=== PATIENT | male | born 1970 | race African-American/Black ===

== ENCOUNTER 2018-01-11 09:30 | Inpatient (IN) | payer OTHER ==
[2018-01-11] VITALS (7 sets, daily range): BP systolic 77–111; BP diastolic 39–71
[~2018-01-11] VITALS: Ht 182.9 cm; Wt 144.1 kg
--- NOTE | ~2018-01-11 | 2DMMODE ---
[facility] [place] [employer] [place] [address] 2 D/M-MODE ECHOCARDIOGRAM Name: DEMETRI DURAND Room #: 219-P [facility] IN ..#: [id number] Admission: 01/11/18 Attend Phys: Stephan Syed MD Discharge: Date of : 72 Date of Service: 01/11/18 1432 Report #: [id number] THIS REPORT FOR: //name// APPROVED REPORT Study performed: 01/11/2018 11:40:19 EXAM: Comprehensive 2D, Doppler, and color-flow Echocardiogram Patient Location: ER Status: routine BSA: 2.62 HR: 52 bpm BP: 86/49 mmHg Rhythm: NSR Other Information Study Quality: Adequate Indications Syncope, dizziness, bradycardia, history of cardiomyopathy with low EF. 2D Dimensions RVDd: 45.80 mm IVSd: 12.01 (7-11mm) LVOT Diam: 21.75 (18-24mm) LVDd: 56.51 mm PWd: 12.14 (7-11mm) Ascending Ao: 33.24 (22-36mm) LVDs: 41.90 (25-40mm) Aortic Root: 36.38 mm Volumes Left Atrial Volume (Systole) Single Plane 4CH: 59.73 mL Single Plane 2CH: 56.02 mL LA ESV Index: 24.00 mL/m2 Aortic Valve AoV Peak Ritesh.: 1.51 m/s AO Peak Gr.: 9.09 mmHg LVOT Max P.83 mmHg LVOT Max V: 1.10 m/s LILL[place] Vmax: 2.71 cm2 Mitral Valve E/A Ratio: 1.3 MV Decel. Time: 161.64 ms [facility] [place] [employer] [place] [address] 2 D/M-MODE ECHOCARDIOGRAM Name: DEMETRI DURAND Room #: 219-P [facility]#: [id number] Admission: 01/11/18 Attend Phys: Stephan Syed MD Discharge: Date of : 72 Date of Service: 01/11/18 1432 Report #: [id number] MV E Max Ritesh.: 0.96 m/s MV A Ritesh.: 0.74 m/s MV PHT: 46.87 ms IVRT: 83.04 ms Pulmonary Valve PV Peak Ritesh.: 0.90 m/s PV Peak Gr.: 3.27 mmHg Pulmonary Vein P Vein S: 0.47 m/s P Vein A: 0.28 m/s P Vein D: 0.41 m/s P Vein A Dur.: 110.7 msec P Vein S/D Ratio: 1.15 Tricuspid Valve TR Peak Ritesh.: 1.92 m/s RAP Estimate: 5.00 mmHg TR Peak Gr.: 14.81 mmHg PA Pressure: 20.00 mmHg Left Ventricle The left ventricle is normal size. There is normal LV segmental wall motion. Mild concentric left ventricular hypertrophy. Left ventricular systolic function is normal. LVEF is 55%. The left ventricular diastolic function is normal. Right Ventricle Right ventricle is at the upper limits of normal. The right ventricular systolic function is normal. Atria The left atrium size is normal. The right atrium size is normal. Aortic Valve The aortic valve is normal in structure. Trace aortic regurgitation. There is no aortic valvular stenosis. Mitral Valve The mitral valve is normal in structure. Trace mitral regurgitation. Tricuspid Valve The tricuspid valve is normal in structure. Trace tricuspid regurgitation. Estimated PAP is 20-25mmHg. Pulmonic Valve The pulmonary valve is normal in structure. Mild pulmonic [place] [id number] 2 D/M-MODE ECHOCARDIOGRAM Name: DEMETRI DURAND Room #: 219-P [facility] IN .R.#: [id number] Admission: 01/11/18 Attend Phys: Stephan Syed MD Discharge: Date of : 72 Date of Service: 01/11/18 1432 Report #: [id number] regurgitation. Great Vessels The aortic root is normal in size. The ascending aorta is normal in size. IVC is normal in size and collapses >50% with inspiration. Pericardium There is no pericardial effusion. <Conclusion> 1. Normal echocardiogram with Doppler. EF 55% 2. Pulmonary artery pressure 20-25mmHg 3. No pericardial effusion <ELECTRONICALLY SIGNED> By: Kyle Rizo MD, FACC 01/11/181431 31 31 Kyle Rizo MD, FACC /INF
--- NOTE | ~2018-01-11 | EKG ---
[address] [address] ELECTROCARDIOGRAM REPORT Name: DEMETRI DURAND Room #: 170-8 ADM IN M.R.#: [id number] Admission: 01/11/18 Attend Phys: Stephan Syed MD Discharge: Date of : 72 Report #: [id number] THIS REPORT FOR: //name// [facility] ED Test Date: 2018-01-11 Test Time: 09:38:36 Pat Name: DEMETRI DURAND Department: Room: 170 Gender: M [employer]: NICOLLE : 1970 Requested By: Cullen Ash Order Number: [id number] MD: Sukhwinder Newsome Measurements Intervals [place] Rate: 42 P: -5 ME: 213 QRS: 28 QRSD: 118 T: 14 QT: 457 QTc: 382 Interpretive Statements Sinus bradycardia Borderline prolonged ME interval Incomplete left bundle branch block ST elev, probable normal early repol pattern Compared to ECG 01/02/2006 13:52:39 Electronically Signed On 01-11-2018 13:26:17 CDT by Sukhwinder Newsome [email or web address] <ELECTRONICALLY SIGNED> By: Sukhwinder Newsome MD 01/11/18 1326 [id number] [id number] Sukhwinder Newsome MD /GUSTAVO
[2018-01-11 10:29] LABS: ABSOLUTE NEUTROPHILS 4.6 thou/uL (1.4-8.2); BASOPHILS 0.4 % (0.0-2.0); EOSINOPHILS 1.3 % (0.0-3.0); HEMATOCRIT 37.8 % (42.0-52.0); HEMOGLOBIN 12.7 gm/dL (14.0-18.0); LYMPHOCYTES 17.8 % (24.0-44.0); MCH 29.5 pg (26.0-34.0); MCHC 33.4 g/dL (28.0-37.0); MCV 88.3 fL (80.0-100.0); MONOCYTES 8.6 % (1.0-8.0); PLATELET COUNT 201 thou/uL (150-400); POLYS 71.9 % (36.0-66.0); RBC 4.28 mil/uL (4.50-6.00); RDW 14.9 % (10.5-14.5); WBC 6.4 thou/uL (4.0-11.0)
[2018-01-11 10:32] LABS: ANION GAP 9 mmol/L (7-16); BUN 20 mg/dL (7-18); CHLORIDE 107 mmol/L (98-107); CO2 26 mmol/L (21-32); CREATININE 2.4 mg/dL (0.7-1.3); GLUCOSE 117 mg/dL (74-106); POTASSIUM 4.5 mmol/L (3.5-5.1); SODIUM 142 mmol/L (136-145)
[2018-01-11 10:41] LABS: ALBUMIN 3.5 g/dL (3.4-5.0); MAGNESIUM 1.9 mg/dL (1.8-2.4); SGOT 15 U/L (15-37); SGPT 22 U/L (30-65); TOTAL BILIRUBIN 0.4 mg/dL (<0.1-1.0); TOTAL PROTEIN 6.9 g/dL (6.4-8.2); TROPONIN-I <0.06 ng/mL (<0.06)
[2018-01-11] MEDS ORDERED: COREG25 MG PO (12:43)
[2018-01-11] MEDS ORDERED: ATORVASTATIN CA40 MG PO (12:43)
[2018-01-11] MEDS ORDERED: HYDROCHLOROTH12.5 M1 PO (12:43)
[2018-01-11] MEDS ORDERED: LISINOPRIL40 MG PO (12:43)
[2018-01-12 03:07] LABS: HEMATOCRIT 38.1 % (42.0-52.0); HEMOGLOBIN 12.7 gm/dL (14.0-18.0); MCH 29.3 pg (26.0-34.0); MCHC 33.2 g/dL (28.0-37.0); MCV 88.1 fL (80.0-100.0); RBC 4.33 mil/uL (4.50-6.00); RDW 15.2 % (10.5-14.5); WBC 6.9 thou/uL (4.0-11.0)
[2018-01-12 03:08] LABS: CALCIUM 8.1 mg/dL (8.5-10.1); CREATININE 1.8 mg/dL (0.7-1.3); POTASSIUM 3.9 mmol/L (3.5-5.1)
[2018-01-12 05:03] VITALS: BP 115/65
[2018-01-12 07:20] VITALS: BP 104/64
[2018-01-12 08:16] LABS: URINE BILIRUBIN NEGATIVE (Negative); URINE BLOOD NEGATIVE (Negative); URINE CLARITY CLEAR; URINE COLOR YELLOW; URINE GLUCOSE-RANDOM* NEGATIVE (Negative); URINE KETONES NEGATIVE (Negative); URINE LEUKOCYTES NEGATIVE (Negative); URINE NITRITE NEGATIVE (Negative); URINE PROTEIN (DIPSTICK) NEGATIVE (Negative); URINE UROBILINOGEN 0.2 E.U./dl (0.2-1.0)
[2018-01-12 11:37] VITALS: BP 114/60
[2018-01-12] MEDS ORDERED: CARVEDILOL25 MG PO (13:56)
[2018-01-12] MEDS ORDERED: LISINOPRIL5 MG PO (13:56)
[2018-01-12 14:09] LABS: LYME ANTIBODY SCREEN* <0.91 ISR (0.00-0.90)
[2018-01-12 15:12] VITALS: BP 110/66
[2018-01-12 20:00] VITALS: BP 116/76
[2018-01-13 04:11] LABS: CALCIUM 8.3 mg/dL (8.5-10.1); CREATININE 1.7 mg/dL (0.7-1.3); POTASSIUM 4.3 mmol/L (3.5-5.1)
[2018-01-13 04:31] LABS: HEMATOCRIT 37.8 % (42.0-52.0); HEMOGLOBIN 12.3 gm/dL (14.0-18.0); MCH 28.6 pg (26.0-34.0); MCHC 32.5 g/dL (28.0-37.0); MCV 88.1 fL (80.0-100.0); RBC 4.29 mil/uL (4.50-6.00); RDW 14.7 % (10.5-14.5); WBC 5.8 thou/uL (4.0-11.0)
[2018-01-13 05:05] VITALS: BP 136/76
[2018-01-13 09:42] VITALS: BP 126/69
[2018-01-13] MEDS ORDERED: AZITHROMYCIN 2250 MG PO (10:12)
[2018-01-13 12:19] VITALS: BP 126/69
[2018-01-13 13:20] VITALS: BP 120/77
== END 2018-01-13 13:40 | disposition home or self-care (01) | DRG 917 ==
LOC: ER 09:30 → EROBS 10:53 → 2N 10:53 → ENTRNSPT 01-13 13:10 → EDTRNSPTSTS 01-13 13:15 → EDTRNSPT 01-13 13:37 → 2N 01-13 13:40
PROVIDERS: Emergency Medicine; Hospitalist; Student in an Organized Health Care Education/Training Program
DX: T62.8X1A Toxic effect of other specified noxious substances eaten as food, accidental (unintentional), initial encounter (principal); N17.0 Acute kidney failure with tubular necrosis; E43 Unspecified severe protein-calorie malnutrition; I42.9 Cardiomyopathy, unspecified; I13.0 Hypertensive heart and chronic kidney disease with heart failure and stage 1 through stage 4 chronic kidney disease, or unspecified chronic kidney disease; Z68.41 Body mass index [BMI] 40.0-44.9, adult; E78.5 Hyperlipidemia, unspecified; R00.1 Bradycardia, unspecified; I95.9 Hypotension, unspecified; I50.9 Heart failure, unspecified; I25.10 Atherosclerotic heart disease of native coronary artery without angina pectoris; N18.9 Chronic kidney disease, unspecified; E66.9 Obesity, unspecified; E86.0 Dehydration; Z53.29 Procedure and treatment not carried out because of patient's decision for other reasons; I34.0 Nonrheumatic mitral (valve) insufficiency; Z79.899 Other long term (current) drug therapy; Y92.89 Other specified places as the place of occurrence of the external cause
CPT/HCPCS: 10081; 10797